=== PATIENT | female | born 1965 | race Caucasian/White ===

== ENCOUNTER 2018-12-01 11:30 | Inpatient (IN) | payer BC ==
[~2018-12-01] VITALS: Ht 154.9 cm; Wt 115.2 kg
[~2018-12-01 11:30] MED LIST: ADVIL PM CAPLE1 EACH; ASPIRIN325; CIPRO250 M1 PO; CIPRO250 M2 PO; CIPROFLOXACIN500 M1 PO; CLONAZEPAM 0.50.5 M1; FLAGYL500 MG PO; HYDROCODON-ACE1 EAC7 PO; IBUPROFEN 800800 M1 PO; LEVAQUIN 500 M500 M2 PO; NORCO 5-325 TA1 EACH PO; PREDNISONE 20 M20 M1 PO; TAMIFLU30 MG PO; TOPROL XL25 MG PO; VENTOLIN HFA 1818 GM INH; VICODIN ES TAB1 EACH PO; ZOFRAN ODT4 MG PO; ZPAK PO
[2018-12-01 11:48] VITALS: BP 120/75
[2018-12-01] MEDS ORDERED: NOHOMEMEDICATIONS (11:54)
[2018-12-01 12:29] LABS: HEMATOCRIT 44.9 % (37.0-47.0); HEMOGLOBIN 15.2 gm/dL (12.0-15.0); MCH 29.3 pg (26.0-34.0); MCHC 33.9 g/dL (28.0-37.0); MCV 86.6 fL (80.0-100.0); MPV 9.7 fl. (7.2-11.1); NUCLEATED RBCS 0 /100WBC; PLATELET COUNT* 190 thou/uL (150-400); RBC 5.19 mil/uL (4.20-5.00)
[2018-12-01 12:53] LABS: ANION GAP 9 mmol/L (7-16); BUN 9 mg/dL (7-18); CHLORIDE 102 mmol/L (98-107); CO2 27 mmol/L (21-32); CREATININE 1.1 mg/dL (0.6-1.3); GLUCOSE 190 mg/dL (70-99); POTASSIUM 3.9 mmol/L (3.5-5.1); SODIUM 138 mmol/L (136-145)
[2018-12-01 13:03] LABS: ALBUMIN 3.6 g/dL (3.4-5.0); ALKALINE PHOSPHATASE 102 U/L (46-116); LIPASE 71 U/L (73-393); MAGNESIUM 1.6 mg/dL (1.8-2.4); NT-PRO BRAIN NAT PEPTIDE 329 pg/mL (<300); SGOT 47 U/L (15-37); SGPT 78 U/L (30-65); TOTAL BILIRUBIN 0.7 mg/dL (<0.1-1.0); TOTAL PROTEIN 7.3 g/dL (6.4-8.2); TROPONIN-I LEVEL <0.06 ng/mL (<0.06)
[2018-12-01 13:12] LABS: ABSOLUTE LYMPHOCYTES 2.2 thou/uL (0.8-5.3); ABSOLUTE NEUTROPHILS 21.8 thou/uL (1.6-8.1); ATYPICAL LYMPHS 1 %; PLATELET ESTIMATE ADEQUATE
[2018-12-01 13:27] LABS: URINE BLOOD 1+ (Negative); URINE CLARITY CLEAR; URINE COLOR DARK YELLOW; URINE GLUCOSE-RANDOM NEGATIVE (Negative); URINE KETONES NEGATIVE (Negative); URINE LEUKOCYTES-REFLEX 1+ (Negative); URINE NITRITE-REFLEX NEGATIVE (Negative); URINE PROTEIN TRACE (Negative); URINE UROBILINOGEN 0.2 E.U./dl (0.2-1.0)
[2018-12-01 13:31] LABS: ICTOTEST (BILI CONFIRMATORY) Negative (Negative); URINE BILIRUBIN 1+ (Negative)
[2018-12-01 13:33] LABS: SQUAMOUS >10 Many /LPF (0-3)
[2018-12-01 13:34] LABS: URINE RBC 3-10 Few /HPF (0-2); URINE WBC-REFLEX 6-15 Few /HPF (0-5)
[2018-12-01 13:35] LABS: CASTS None Seen /LPF (None Seen); CRYSTALS None Seen /LPF (None Seen); MUCUS >6 Heavy strn/LPF (None Seen)
[2018-12-01 16:46] VITALS: BP 117/68
[2018-12-01 17:15] VITALS: BP 126/76
--- NOTE | 2018-12-01 18:59 | NUR ---
PT ARRIVED TO ROOM 228 AT APPROX 1710 FROM THE ER. PT A/O X4, C/O SOME PAIN IN LLQ AND CHEST PRESSURE, SHE STATES "IT IS BETTER SINCE I GOT HERE". PT VSS, SR/BBB ON THE MONITOR. O2 SAT 98% ON RA. ADMISSION HX AND ASSESMENT DONE CHARTED. PT RESTING IN BED, FALL PRECAUTIONS IN PLACE, PT UPDATED ON PLAN OF CARE. WILL CONTINUE TO MONITOR.
--- NOTE | 2018-12-01 20:14 | EKG ---
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 <ELECTRONICALLY SIGNED> By: Radha David MD, [facility] 12/01/182013 1154 1154 Radha David MD, [facility] /EPI
[2018-12-01 23:42] LABS: AMP/METHAMP Negative (Negative); BARBITURATES Negative (Negative); BENZODIAZEPINES Negative (Negative); COCAINE Negative (Negative); METHADONE Negative (Negative); OPIATES Negative (Negative); PCP Negative (Negative); THC Negative (Negative)
[2018-12-02] VITALS: BP 110/69
[2018-12-02 04:00] VITALS: BP 154/58
[2018-12-02 05:01] LABS: ABSOLUTE BASOPHILS 0.1 thou/uL (0.0-0.2); ABSOLUTE EOSINOPHILS 0.2 thou/uL (0.0-0.7); ABSOLUTE LYMPHOCYTES 1.3 thou/uL (0.8-5.3); ABSOLUTE MONOCYTES 0.8 thou/uL (0.0-1.2); ABSOLUTE NEUTROPHILS 8.9 thou/uL (1.6-8.1); BASOPHILS 0.5 %; EOSINOPHILS 1.7 %; LYMPHOCYTES 11.8 %; MCH 28.9 pg (26.0-34.0); MCV 87.4 fL (80.0-100.0); MONOCYTES 6.8 %; MPV 9.8 fl. (7.2-11.1); NUCLEATED RBCS 0 /100WBC; PLATELET COUNT* 137 thou/uL (150-400); POLYS 79.2 %; RBC 4.46 mil/uL (4.20-5.00); RDW-CV 15.1 % (10.5-14.5); WBC 11.3 thou/uL (4.0-11.0)
[2018-12-02 05:04] LABS: HEMOGLOBIN 12.9 gm/dL (12.0-15.0)
[2018-12-02 05:23] LABS: ANION GAP 8 mmol/L (7-16); BUN 6 mg/dL (7-18); CALCIUM 8.3 mg/dL (8.5-10.1); CHLORIDE 106 mmol/L (98-107); CHOLESTEROL 139 mg/dL (<200); CO2 24 mmol/L (21-32); CREATININE 0.7 mg/dL (0.6-1.3); GLUCOSE 156 mg/dL (70-99); HDL CHOLESTEROL 40 mg/dL (>40); LDL CHOLESTEROL 83 mg/dL (<100); MAGNESIUM 1.7 mg/dL (1.8-2.4); POTASSIUM 3.5 mmol/L (3.5-5.1); SODIUM 138 mmol/L (136-145); TC:HDL 3.5 Ratio (Not establshd); TRIGLYCERIDE 82 mg/dL (<150); VLDL 16 mg/dL (<40)
[2018-12-02 05:26] LABS: SERUM ASSESSMENT CLEAR
--- NOTE | 2018-12-02 05:59 | NUR ---
PATIENT SLEPT PART OF THE NIGHT. IV FLUIDS CONTINUE TO INFUSE ORDERED. PATIENT CONTINUES TO HAVE CHEST PRESSURE SHE DESCRIBES IT. TYLENOL WAS GIVEN TWICE FOR PAIN. PATIENT HAS MORPHINE AVAILBLE BUT REFUSED. PATIENT HAS BEEN SR ON THE MONITOR. WILL CONTINUE TO MONITOR.
[2018-12-02 08:00] VITALS: BP 146/81
[2018-12-02 11:44] LABS: CHOLESTEROL 140 mg/dL (<200); HDL CHOLESTEROL 40 mg/dL (>40); LDL CHOLESTEROL 83 mg/dL (<100); TC:HDL 3.5 Ratio (Not establshd); TRIGLYCERIDE 86 mg/dL (<150); VLDL 17 mg/dL (<40)
[2018-12-02 11:45] LABS: SERUM ASSESSMENT Clear
[2018-12-02 12:08] VITALS: BP 112/53
[2018-12-02 15:36] VITALS: BP 105/51
--- NOTE | 2018-12-02 16:44 | NUR ---
RECEIVED REPORT FROM NATHANIEL ARVIZU. ASSUMED CARE OF PT AROUND 729. PT A&OX4. VSS. 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 CARDIOLOGY IN TO SEE PT - PLAN FOR STRESS TEST TUESDAY. PT REPORTED HEADACHE. DOCTOR MESSAGED FOR ALEVE PER PT REQUEST, CELEBREX ORDERED INSTEAD; GIVEN, PT REPORTS PARTIAL RELIEF FROM HEADACHE. PT UP TO THE BATHROOM MULTIPLE TIMES WITH SBA. STOOL SAMPLE OBTAINED AND SENT DOWN. MEDS PER EMAR. PT HAS BEEN RESTING MOST OF THE SHIFT. APPETITE GOOD. CT SCANS COMPLETED, SEE RESULTS. PT CURRENTLY ASLEEP. FALL PRECAUTIONS IN PLACE. CALL LIGHT IS WITHIN REACH. HOURLY ROUNDING PERFORMED. WCTM FOR DURATION OF SHIFT.
[2018-12-03] VITALS: BP 106/51
[2018-12-03 04:00] VITALS: BP 129/72
[2018-12-03 05:30] LABS: ABSOLUTE BASOPHILS 0.1 thou/uL (0.0-0.2); ABSOLUTE EOSINOPHILS 0.2 thou/uL (0.0-0.7); ABSOLUTE LYMPHOCYTES 1.9 thou/uL (0.8-5.3); ABSOLUTE MONOCYTES 0.8 thou/uL (0.0-1.2); ABSOLUTE NEUTROPHILS 4.2 thou/uL (1.6-8.1); BASOPHILS 0.8 %; HEMATOCRIT 41.3 % (37.0-47.0); HEMOGLOBIN 13.8 gm/dL (12.0-15.0); LYMPHOCYTES 26.5 %; MCH 29.2 pg (26.0-34.0); MCHC 33.4 g/dL (28.0-37.0); MCV 87.4 fL (80.0-100.0); MONOCYTES 10.9 %; MPV 9.9 fl. (7.2-11.1); NUCLEATED RBCS 0 /100WBC; PLATELET COUNT* 150 thou/uL (150-400); POLYS 58.8 %; RBC 4.72 mil/uL (4.20-5.00); RDW-CV 14.7 % (10.5-14.5); WBC 7.2 thou/uL (4.0-11.0)
[2018-12-03 05:37] LABS: GLYCOHEMOGLOBIN (HGB A1C) 7.3 % (4.8-5.6)
[2018-12-03 05:42] LABS: CALCIUM 8.6 mg/dL (8.5-10.1); CREATININE 0.9 mg/dL (0.6-1.3); MAGNESIUM 2.3 mg/dL (1.8-2.4); POTASSIUM 3.3 mmol/L (3.5-5.1)
--- NOTE | 2018-12-03 06:02 | NUR ---
PATIENT SLEPT MOST OF THE NIGHT. IV REMAINS SALINE LOCKED. PATIENT WAS STILL COMPLAINING OF HEADACHE. 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 PATIENT HAS BEEN SR ON MONITOR. WILL CONTINUE TO MONITOR.
[2018-12-03 08:00] VITALS: BP 133/86
[2018-12-03 11:13] VITALS: BP 132/86
--- NOTE | 2018-12-03 12:22 | EKG ---
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 : 1965 Requested By: Radha David Order Number: [id number] Reading MD: Mauricio David Measurements Intervals [place] Rate: 89 P: 7 NC: 150 QRS: 50 QRSD: 108 T: 33 QT: 360 QTc: 439 Interpretive Statements Sinus rhythm Low voltage, precordial leads Baseline wander in lead(s) V6 Compared to ECG 12/01/2018 11:54:07 Low QRS voltage now present Sinus tachycardia no longer present T-wave abnormality no longer present Electronically Signed On 12-03-2018 12:21:46 CDT by Mauricio David [email or web address] <ELECTRONICALLY SIGNED> By: Radha David MD, [facility] 12/03/18 1221 1856 1856 Radha David MD, [facility] /EPI
--- NOTE | 2018-12-03 13:40 | NUR ---
ASSUMED CARE OF PATIENT THIS AM AT 0730. PATIENT IS ALERT AND ORIENTED X 4. SHE DENIES CHEST PAIN AND SOA. TELE SHOWS NSR. PATIENT HAS BEEN UP IN THE ROOM INDEPENDENTLY. FSBS MONITORED AND BLOOD SUGARS CONTROLLED. STRESS TEST PROCEDURE EXPLAINED. POTASSIUM REPLACED PO PER ORDER. WILL CONTINUE TO MONIITOR.
[2018-12-03 15:32] VITALS: BP 133/84
[2018-12-03 20:00] VITALS: BP 103/55
[2018-12-04] VITALS: BP 122/90
[2018-12-04 04:00] VITALS: BP 107/72
[2018-12-04 05:30] LABS: MAGNESIUM 2.2 mg/dL (1.8-2.4); POTASSIUM 4.2 mmol/L (3.5-5.1)
[2018-12-04 05:34] LABS: CALCIUM 9.3 mg/dL (8.5-10.1); CREATININE 0.8 mg/dL (0.6-1.3); POTASSIUM 4.2 mmol/L (3.5-5.1)
--- NOTE | 2018-12-04 06:03 | NUR ---
PATIENT SLEPT MOST OF THE NIGHT. IV REMAINS SALINE LOCKED. PATIENT COMPLAINING OF A HEADACHE THIS MORNING TYLENOL WAS GIVEN ORDERED. PATIENT IS SCHEDULED FOR STRESS TEST TODAY. WILL CONTINUE TO MONITOR.
[2018-12-04 08:00] VITALS: BP 115/77
[2018-12-04 12:00] VITALS: BP 131/83
[2018-12-04 12:34] VITALS: BP 115/77
--- NOTE | 2018-12-04 13:17 | 2DMMODE ---
[place] [address] 2 D/M-MODE ECHOCARDIOGRAM Name: GERSON JUAREZ V Room: [address] IN .R.#: [id number] Admission: 12/01/18 Attend Phys: Evangelina Avila MD Discharge: Date of : 69 Date of Service: 12/04/18 1317 Report #: [id number] THIS REPORT FOR: //name// APPROVED REPORT Study performed: 12/04/2018 11:06:03 EXAM: Comprehensive 2D, Doppler, and color-flow Echocardiogram Patient Location: Bedside BSA: 2.07 HR: 81 bpm BP: 115/77 mmHg Other Information Study Quality: Fair Indications Chest Pain 2D Dimensions IVSd: 11.89 (7-11mm) LVOT Diam: 21.23 (18-24mm) LVDd: 45.30 mm PWd: 12.30 (7-11mm) Ascending Ao: 29.73 (22-36mm) LVDs: 35.53 (25-40mm) Aortic Root: 30.88 mm Volumes Left Atrial Volume (Systole) LA ESV Index: 15.00 mL/m2 Aortic Valve AoV Peak Adalberto.: 1.11 m/s AO Peak Gr.: 4.91 mmHg LVOT Max P.62 mmHg AO Mean Gr.: 3.15 mmHg LVOT Mean P.10 mmHg LVOT Max V: 0.81 m/s AO V2 VTI: 20.06 cm LVOT Mean V: 0.47 m/s RAY (VTI): 2.45 cm2 LVOT V1 VTI: 13.90 cm Mitral Valve E/A Ratio: 0.63 MV Decel. Time: 298.36 ms MV E Max Adalberto.: 0.52 m/s MV PHT: 86.52 ms MVA (PHT): 2.54 [place]2 [place] [address] 2 D/M-MODE ECHOCARDIOGRAM Name: GERSON JUAREZ V Room: [address] IN [facility]#: [id number] Admission: 12/01/18 Attend Phys: Evangelina Avila MD Discharge: Date of : 69 Date of Service: 12/04/18 1317 Report #: [id number] TDI E/Lateral E': 8.67 E/Medial E': 8.67 Medial E' Adalberto.: 0.06 m/s Lateral E' Adalberto.: 0.06 m/s Pulmonary Valve PV Peak Adalberto.: 0.86 m/s PV Peak Gr.: 2.96 mmHg Tricuspid Valve RAP Estimate: 5.00 mmHg TR Peak Gr.: 22.03 mmHg RVSP: 27.03 mmHg PA Pressure: 27.03 mmHg Left Ventricle The left ventricle is normal size. There is normal LV segmental wall motion. Mild concentric left ventricular hypertrophy. Left ventricular systolic function is normal. The left ventricular ejection fraction is within the normal range. LVEF is 50-55%. Grade I - abnormal relaxation pattern. Right Ventricle The right ventricle is normal size. The right ventricular systolic function is normal. Atria The left atrium size is normal. Interatrial septum not well visualized. The right atrium size is normal. Aortic Valve The aortic valve is normal in structure. No aortic regurgitation is present. There is no aortic valvular stenosis. Mitral Valve The mitral valve is normal in structure. There is no mitral valve regurgitation noted. No evidence of mitral valve stenosis. Tricuspid Valve The tricuspid valve is normal in structure. Trace tricuspid regurgitation. Pulmonic Valve Pulmonic valve is not well visualized. There is no pulmonic valvular regurgitation[place] [address] 2 D/M-MODE ECHOCARDIOGRAM Name: GERSON JUAREZ V Room: [address]#: [id number] Admission: 12/01/18 Attend Phys: Evangelina Avila MD Discharge: Date of : 69 Date of Service: 12/04/18 1317 Report #: [id number] The aortic root is normal in size. IVC is not well visualized. Pericardium There is no pericardial effusion. <Conclusion> Mild concentric left ventricular hypertrophy. LVEF is 50-55%. <ELECTRONICALLY SIGNED> By: Jovanni Scott MD, FACC 12/04/18 1317 16 16 Jovanni Scott MD, FAC /INF
--- NOTE | 2018-12-04 13:24 | NUR ---
Nutrition: Pt admitted with UTI/sepsis. Seen for high BMI. Wt is 254#. NPO for stress test. WBC WNL, BG 160, alb 3.6. Chart reviewed. Recommend CHO controlled diet once able to advance it. Low risk.
--- NOTE | 2018-12-04 13:30 | NUR ---
MET WITH PT TO DISCUSS HOME SITUATION/DC PLANNING. PT LIVES WITH SPOUSE AND FAMILY. 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 USES NO EQUIPMENT AND DENIES ANY DC NEEDS. WILL FOLLOW
[2018-12-04] MEDS ORDERED: ADULT LOW DOSE81 MG PO (15:19)
[2018-12-04] MEDS ORDERED: LIPITOR40 MG PO (15:19)
[2018-12-04] MEDS ORDERED: AMARYL2 MG PO (15:20)
--- NOTE | 2018-12-04 17:39 | CARDNUC ---
[place] [address] CARDIAC NUCLEAR IMAGING REPORT Name: GERSON JUAREZ V Room: [address] IN [facility]#: [id number] Admission: 12/01/18 Attend Phys: Evangelina Avila MD Discharge: Date of : 69 Date of Service: 12/04/18 1739 Report #: [id number] THIS REPORT FOR: //name// APPROVED REPORT Study performed: 12/02/2018 11:11:00 Indication: Chest pain, Dyspnea, Diaphoresis, Dizziness, Shivering/Shaking. Patient Location: In-Patient Room #: 228 Stress Tech: Alisha Lora Stress Nurse: Hallie Munoz RN Ht: 5 ft 1 in Wt: 247 lbs BSA: 2.07 m2 BMI: 46.66 Medical History Medical History: Angina, Diabetes, Hyperlipidemia, Obesity , SOB, Diaphoresis, Dizziness, Shivering/Shaking. Medications: Lispro, Glimpiride, Atorvastatin, ASA 81 Mg, NTG. Allergies: Contrast Dye. Cardiac Risk Factors: DM, FHX of CAD, Hyperlipidemia, Obesity, Dyspnea. Previous Cardiac Procedures: None Pretest Chest Pain Characteristics: No chest pain Exercise History: Physically active Physical Disabilities: Obesity, Dizziness. Meds Held (24 hrs): NTG. Pharmacologic Stress Pharmacologic stress test was performed by injecting Regadenoson 0.4 mg IV push over 10-15 seconds immediately followed by the intravenous injection of 39.6 mCi of Tc-99m Sestamibi. Time of stress injection: 15:15 Date: 12/04/2018 Administration Route: IV Administration Site: Left Arm Heart Rate at time of stress injection: 117 bpm. Gated Stress SPECT was performed 45 minutes after stress injection. The images were gated to evaluate regional wall motion and calculate left ventricular ejection fraction. [place] [address] CARDIAC NUCLEAR IMAGING REPORT Name: GERSON JUAREZ V Room: [address]#: [id number] Admission: 12/01/18 Attend Phys: Evangelina Avila MD Discharge: Date of : 69 Date of Service: 12/04/18 1739 Report #: [id number] Stress Test Details Stress Test: Pharmacologic stress was paired with low level exercise. Reason for pharmacologic stress test: Obesity, Dizziness.. HR Max Heart Rate (APMHR): 169 bpm Resting HR: 78 bpm Target HR (85% APMHR): 143 bpm Max HR Achieved: 145 bpm % of APMHR: 85 Recovery HR: 96 bpm BP Resting BP: 102/61 mmHg Max BP: 162/49 mmHg Recovery BP: 108/69 mmHg ECG Resting ECG: Sinus Rhythm Stress ECG: Sinus Tachycardia ST Change: None Arrhythmia: None Recovery ECG: Sinus Rhythm Recovery ST Change: None Recovery Arrhythmia: None Clinical Reason for Termination: Completed protocol Stress Symptoms: Dyspnea. Exercise duration: 4 min 00 sec Exercise capacity: 2.30 METs The patient had no significant cardiac symptoms with Lexiscan infusion. Nurse Comments 53 year old female inpatient presented with recent HX of CP, SOA, Dizziness, Diaphoresis and shivering/shaking. Patient tolerated walking Lexiscan well. Recovery unremarkable with PO caffeine, effective. Patient was escorted via wheelchair by staff to Nuclear Medicine for images. Patient was stable with no complaints at that time. Stress ECG Conclusion The baseline 12-lead EKG show sinus rhythm without significant ST segment abnormality. Obtained during and post walking Lexiscan protocol showed sinus rhythm and sinus tachycardia with no significant ST or T wave changes when compared to baseline. There were no [place] [address] CARDIAC NUCLEAR IMAGING REPORT Name: GERSON JUAREZ V Room: [address]#: [id number] Admission: 12/01/18 Attend Phys: Evangelina Avila MD Discharge: Date of : 69 Date of Service: 12/04/18 1739 Report #: [id number] Study Quality Study: Good Artifact: No artifact Study Data Post stress, the left ventricular ejection was 63%.. Perfusion Normal left ventricular perfusion. Wall Motion Normal left ventricular wall motion. Nuclear Conclusion ECG Findings: negative for ischemia Clinical Findings: negative for ischemia Nuclear Findings: negative for ischemia Exercise Capacity: not assessed Left Ventricular Function: normal Risk Study: low Myocardial perfusion images show no defect to suggest infarct or ischemia. Left ventricular systolic function appears normal on gated studies. This is a low risk study. <Conclusion> The baseline 12-lead EKG show sinus rhythm without significant ST segment abnormality. Obtained during and post walking Lexiscan protocol showed sinus rhythm and sinus tachycardia with no significant ST or T wave changes when compared to baseline. There were no stress-induced arrhythmias. <ELECTRONICALLY SIGNED> By: Mike Mendiola MD, FACC 12/04/18 1739 1739 1739 Mike Mendiola MD, FACC /INF
--- NOTE | 2018-12-05 08:30 | CON ---
[address] [address] CONSULTATION Name: GERSON JUAREZ V Room: [address] IN M.R.#: [id number] Admission: 12/01/18 Attend Phys: Evangelina Avila MD Discharge: 12/04/18 Date of : 69 Report #: [id number] THIS REPORT FOR: //name// CC: Courtney Avila CARDIOLOGY CONSULTATION HISTORY OF PRESENT ILLNESS: I was asked by Dr. Avila to see this 53-year-old woman in cardiology consultation for evaluation and treatment of chest pain. This lady awakened yesterday morning at about 6:00 a.m. with shaking chills and malaise and then developed chest discomfort that was substernal and described as a pressure that was a 7 on a scale of 10. She had that discomfort for 4 hours or so. She has had chest discomfort on and off since then. Now, the discomfort is only at 2-3 of 10 and lasts only a few minutes at a time. The discomfort is not worse with activity or better with rest. It occurs at rest. There is associated shortness of breath. There has been no nausea or vomiting. She has had diaphoresis, but that was with the initial episode of shaking chills. She was diaphoretic. She has had no radiation of the discomfort. She did have facial numbness and tingling yesterday that radiated to her hands. She went to her primary care doctor's office and saw Orquidea Kebede, I believe is with [facility], [place] and got an EKG, which looks fairly normal to my eye, although the axis is slightly rightward, it was 86 degrees. There are no ischemic changes. She subsequently had an EKG in the ER here, which was also fairly unremarkable except for sinus tachycardia. She had another EKG last night at about 7:00 p.m. that was also fairly unremarkable. She has had 3 negative troponins. Her BNP was normal. She does admit to dyspnea on exertion and some orthopnea, but not paroxysmal nocturnal dyspnea or edema. She has never known to have had heart failure. She has not had syncope or near syncope. Coronary risk factors include hypercholesterolemia and non-insulin dependent diabetes mellitus. She does not take medication for these. She has not been a smoker. She does not have high blood pressure. There is a family history of coronary artery disease at an early age in her father, who had bypass surgery in his early 60s and had a heart attack before that and both her paternal grandparents, who had coronary events in their 50s. She has not had renal disease or peripheral vascular disease, strokes, TIAs, or claudication or blocked arteries in her neck. MEDICATIONS: She takes no medications. ALLERGIES: SHE HAS CONTRAST DYE ALLERGY. REVIEW OF SYSTEMS: Positive for the chest discomfort mentioned above, which she has not had previously until this time as well as the dyspnea on exertion previously mentioned. She has diabetes. She does have burning with her urination now. She was found to have urinary tract infection in the ER and met [address] [place] [address] CONSULTATION Name: GERSON JUAREZ V Room: [address]#: [id number] Admission: 12/01/18 Attend Phys: Evangelina Avila MD Discharge: 12/04/18 Date of : 69 Report #: [id number] criteria for sepsis. She says she has CONTRAST DYE ALLERGY as well as arthritis and she requires reading glasses. Otherwise, review of systems is negative for some 40 different complaints in 14 different system categories. Please see review of system form for details of negative in review of systems. SOCIAL HISTORY: She is . She has 2 different jobs. Does not smoke and rarely drinks. FAMILY HISTORY: As described above. PAST SURGICAL HISTORY: Includes C-sections, diverticulitis, hysterectomy, and cholecystectomy. PHYSICAL EXAMINATION: GENERAL: She presents as well-developed, well-nourished woman, in no acute distress. VITAL SIGNS: Her pulse was 85 and regular, blood pressure is 154/58, respirations 20 and regular, and temperature is 98.5. HEENT: Head was atraumatic. NECK: Supple. There is no jugular venous distention or hepatojugular reflux. Eyes were clear. Mucous membranes are moist. LUNGS: Clear to auscultation and percussion. HEART: Revealed normal first and second heart sound. There is soft S4. There is no S3. There are no murmurs, rubs, thrills, heaves, or gallops. The rhythm is regular, rate was approximately 80. PMI is nondisplaced. ABDOMEN: Soft, flat, and nontender except over her bladder where there was mild tenderness. There are no palpable masses. There is no organomegaly. EXTREMITIES: Reveal no cyanosis, clubbing, or edema. NEUROLOGIC: The patient mentated normally, talked normally, and moved all extremities normally. DIAGNOSTIC DATA: Her chest x-ray was unremarkable and a V/Q scan was normal. IMPRESSION: 1. Chest pain of uncertain cause, possibly coronary. 2. Hypercholesterolemia. 3. Non-insulin dependent diabetes mellitus. 4. Urinary tract infection with sepsis. 5. Family history of coronary artery disease. RECOMMENDATIONS: She should have a nuclear stress test and an echo, lipid profile, and lipoprotein (a) level. She should be placed on aspirin, [place] [address] CONSULTATION Name: GERSON JUAREZ Esperanza Room: [address]#: [id number] Admission: 12/01/18 Attend Phys: Evangelina Avila MD Discharge: 12/04/18 Date of : 69 Report #: [id number] Thank you very much for asking me to see the patient. If there are any questions, please feel free to contact me. <ELECTRONICALLY SIGNED> By: Radha David MD, FACC 12/05/18 0830 1104 [id number]. Mauricio David MD, FACC /nt
== END 2018-12-04 17:59 | disposition home or self-care (01) | DRG 313 ==
LOC: M.ERS 11:30 → M.TBA-ER 14:11 → M.2W 17:08
PROVIDERS: Emergency Medicine Emergency Medical Services; Internal Medicine; ADMIT Family Medicine
DX: R07.89 Other chest pain (principal); N17.9 Acute kidney failure, unspecified; R65.10 Systemic inflammatory response syndrome (SIRS) of non-infectious origin without acute organ dysfunction; Z68.42 Body mass index [BMI] 45.0-49.9, adult; F41.9 Anxiety disorder, unspecified; E78.00 Pure hypercholesterolemia, unspecified; E11.65 Type 2 diabetes mellitus with hyperglycemia; E66.01 Morbid (severe) obesity due to excess calories; E83.42 Hypomagnesemia; E87.6 Hypokalemia; E78.5 Hyperlipidemia, unspecified; I20.8 Other forms of angina pectoris; N18.3 Chronic kidney disease, stage 3 (moderate); E11.22 Type 2 diabetes mellitus with diabetic chronic kidney disease; Z90.710 Acquired absence of both cervix and uterus; Z90.49 Acquired absence of other specified parts of digestive tract; Z98.891 History of uterine scar from previous surgery; Z79.899 Other long term (current) drug therapy; Z91.041 Radiographic dye allergy status; Z82.49 Family history of ischemic heart disease and other diseases of the circulatory system; Z80.0 Family history of malignant neoplasm of digestive organs